=== PATIENT | female | born 1960 | race Caucasian/White ===

== ENCOUNTER 2018-08-04 15:58 | Observation (INO) | payer OTHER ==
--- NOTE | 2018-08-04 16:44 | EDPHY ---
H & P Stated Complaint: back pain Time Seen by Provider: 08/04/18 16:43 HPI/ROS: CHIEF COMPLAINT: Back pain with left leg radiculopathy HISTORY OF PRESENT ILLNESS: The patient presents the ED with complaints of acute low back pain which has been present for the past several weeks. The patient has recently developed some radiculopathy into her left thigh. She denies any acute numbness or weakness. She is not taking any NSAIDs or steroids. She is scheduled to see a specialist at [facility] next week. The patient denies prior history back surgery. She denies any bowel or bladder dysfunction. She denies saddle anesthesia. REVIEW OF SYSTEMS: A comprehensive 10 point review of systems is otherwise negative aside from elements mentioned in the history of present illness. Source: Patient Exam Limitations: No limitations - Personal History Current Tetanus/Diphtheria Vaccine: Yes Current Tetanus Diphtheria and Acellular Pertussis (TDAP): Yes Tetanus Vaccine Date: 1011 - Medical/Surgical History Hx Asthma: No Hx Chronic Respiratory Disease: No Hx Diabetes: No Hx Cardiac Disease: No Hx Renal Disease: No Hx Cirrhosis: No Hx Alcoholism: No Hx HIV/AIDS: No Hx Splenectomy or Spleen Trauma: No - Social History Smoking Status: Never smoked - Physical Exam Exam: General Appearance: Alert, mild discomfort secondary to pain Eyes: Pupils equal and round no pallor or injection ENT, Mouth: Mucous membranes moist Respiratory: There are no retractions, lungs are clear to auscultation Cardiovascular: Regular rate and rhythm Gastrointestinal: Abdomen is soft and nontender, no masses, bowel sounds normal Neurological: 5/5 strength noted all 4 extremities, normal sensory exam noted bilateral lower extremities Skin: Warm and dry, no rashes Musculoskeletal: Tenderness to palpation in the lower lumbar the musculature. Extremities: symmetrical, full range of motion Constitutional: Initial Vital Signs Temperature (C) 36.9 C 08/04/18 16:15 Heart Rate 88 08/04/18 16:15 Respiratory Rate 16 08/04/18 16:15 Blood Pressure 171/91 H 08/04/18 16:15 O2 Sat (%) 98 08/04/18 16:15 O2 Delivery Mode Room Air Allergies/Adverse Reactions: No Known Allergies Allergy (Unverified 08/04/18 16:14) Home Medications: Medication Instructions Recorded Ibuprofen 08/04/18 Turmeric 08/04/18 Medical Decision Making - Diagnostics Imaging Results: Lumbar MRI: Images reviewed by myself and discussed with radiologist Dr. Carcamo. Impression disc herniation noted at L4-5 into the left neural foramen. ED Course/Re-evaluation: The patient presents to the ED with complaints of acute low back pain with left leg radicular symptoms. The patient was noted to have no motor deficits noted on her initial exam. Patient had an IV established. She was treated with IV Solu-Medrol, narcotics and Toradol. Patient initially had improvement of her symptoms and the plan will be to discharge the patient to home on Solu-Medrol and pain medications. We attempted ambulation in the patient had recurrent severe pain. The patient was taken for an MRI of the lumbar spine which demonstrates a herniated disc at L4-L5 into the left neural foramen. The patient will be admitted to the hospitalist service, under the care of Dr. Bartolome Green. I consulted with Dr. Figueroa from Neurosurgery at 7:00 p.m.. He will evaluate the patient tomorrow to discuss options. Differential Diagnosis: Differential diagnosis considered includes lumbar disc herniation, epidural abscess, myofascial strain - Data Points Medications Given: Discontinued Medications Ketorolac Tromethamine (Toradol) 30 mg IVP EDNOW ONE Stop: 08/04/18 16:52 Last Admin: 08/04/18 16:56 Dose: 30 mg Methylprednisolone Sodium Succinate (Solu-Medrol) 125 mg IVP EDNOW ONE Stop: 08/04/18 16:51 Last Admin: 08/04/18 16:58 Dose: 125 mg Morphine Sulfate (Morphine) 5 mg IVP EDNOW ONE Stop: 08/04/18 16:52 Last Admin: 08/04/18 16:58 Dose: 5 mg Departure - Departure Disposition: [facility] Inpatient Acute Clinical Impression: Lumbar disc herniation Condition: Good Referrals: NONE *PRIMARY CARE P,. [Primary Care Provider] - As per Instructions
[2018-08-04] MEDS ORDERED: methylPREDNISolone SOD SUCC 125 MG/2 ML VIAL IVP ONE (16:50)
[2018-08-04] MEDS ORDERED: KETOROLAC 30 MG/1 ML SDV IVP ONE (16:51)
[2018-08-04] MEDS ORDERED: HYDROmorphONE/DILAUDID 1 MG/ML INJ ONE (18:15)
[2018-08-04] MEDS ORDERED: HYDROmorphONE/DILAUDID 2 MG/ML INJ IVP ONE (18:20)
[2018-08-04] MEDS ORDERED: ONDANSETRON DISINTEGRATING 4 MG TAB PO PRN (19:13)
[2018-08-04] MEDS ORDERED: ONDANSETRON 4 MG/2 ML VIAL IVP PRN (19:13)
[2018-08-04] MEDS ORDERED: ACETAMINOPHEN 325 MG TAB PO PRN (19:13)
--- NOTE | 2018-08-04 20:27 | PDGENHP ---
History and Physical - Chief Complaint L leg pain - History of Present Illness Adelina Quinonez is a 57 yo F with no significant PMHx who presents to [facility] for L leg pain. She reports this has been ongoing for past few weeks with acute worsening over few few days with associated radiation of pain down her left leg to her L foot. She denies any numbness/tingling, weakness, bowel/bladder incontinence. She denies any trauma proceeding pain. History Information - Allergies/Home Medication List Allergies/Adverse Reactions: No Known Allergies Allergy (Unverified 08/04/18 16:14) Home Medications: Ibuprofen [Motrin (*)] 200 mg PO Q6H PRN 08/04/18 [Last Taken 08/04/18 09:00] Turmeric Root Extract [Turmeric Curcumin] 500 mg PO DAILY 08/04/18 [Last Taken Unknown] I have personally reviewed and updated: family history, medical history, social history, surgical history - Past Medical History no pertinent PMH - Surgical History Reports: no pertinent surgical hx - Family History Positive for: non-pertinent - Social History Smoking Status: Never smoked Review of Systems Review of Systems: ROS: 10pt was reviewed & negative except for what was stated in HPI & below Physical Exam Physical Exam: Temp Pulse Resp BP Pulse Ox 36.9 C 89 16 150/93 H 96 08/04/18 16:15 08/04/18 20:08 08/04/18 20:08 08/04/18 20:08 08/04/18 20:08 O2 (L/minute) 2 Constitutional: uncomfortable Eyes: PERRL Ears, Nose, Mouth, Throat: moist mucous membranes Cardiovascular: regular rate and rhythym Respiratory: no respiratory distress Gastrointestinal: soft, non-tender abdomen Skin: warm Musculoskeletal: pain with ROM Neurologic: AAOx3 Psychiatric: interacting appropriately Assessment & Plan Assessment: Lumbar disc herniation (Acute) - Presenting with LLE pain radiating from lower back down to L foot - No associated weakness, numbness.bowel/bladder incontinence, saddle anesthesia - Lumbar MRI performed on admission showing soft disk protrusion causing severe L L4-5 foraminal stenosis - Pain medications PRN - Will order NAKITA to lumbar spine for the AM - Will also place Neurosurgical consult for the AM - S/p IV Solumedrol in ED FEN: IVF PRN, Regular DVT PPx: Low risk, SCDs Code: FULL Dispo: Admit to Observation
[2018-08-04] MEDS: oxyCODONE IR 5 MG TAB PO PRN (20:30)
[2018-08-04] MEDS: KETOROLAC 30 MG/1 ML SDV IVP PRN (23:43)
[2018-08-05] MEDS: oxyCODONE IR 5 MG TAB PO PRN ×2 (03:31→12:03)
[2018-08-05] MEDS: HYDROmorphONE/DILAUDID 1 MG/ML INJ IVP PRN ×2 (03:40→08:22)
[2018-08-05] MEDS ORDERED: GABAPENTIN 300 MG CAP PO SCH (09:00)
--- NOTE | 2018-08-05 09:09 | GCON ---
[f rep st] CONSULTATION NEUROSURGICAL CONSULTATION CHIEF COMPLAINT: Left leg pain history. HISTORY OF PRESENT ILLNESS: Ms. Quinonez is a 57-year-old female, who several weeks ago developed valdo n in the left buttock radiating into her left leg. Over the last couple days her pain severely worse wayne to the point where she was having a hard time walking. She was admitted to [facility] yesterday. An MRI was obtained and neurosurgical consultation was requested. She currently co mplains of pain in her left hip and buttock radiating over her left anterolateral thigh to her knee. She is not having right leg pain. She denies any weakness, ataxia, or bowel or bladder problems. S he has tried oral pain medications, Physical Therapy, and activity modification with no improvement. PAST MEDICAL HISTORY: None. MEDICATIONS: Prior to admission are Motrin and turmeric root extract. ALLERGIES: No known drug allergies. FAMILY HISTORY: Patient has no family history of spine problems. SOCIAL HISTORY: Patient is and has 2 step sons. She does drink alcohol socially, but denies smoking or drug use. REVIEW OF SYSTEMS: Negative. PHYSICAL EXAM: GENERAL: Patient is a 57-year-old female lying in bed, in moderate amount of distres s. HEAD, EYES, EARS, NOSE, AND THROAT: Negative to drainage. EXTREMITIES: [place], warm, and dry. N EUROLOGICAL: Patient is awake, alert, oriented x4. Pupils equal, round, reactive to light. Extraoc ular motions are intact. There is no evidence of facial droop. Tongue and uvula are midline. Spina l accessory muscles are intact. Her motor strength is 5/5 in her arms and legs. Her sensation is gr ossly intact to light touch in her arms and legs with the exception of a dullness to light touch in h er left anterior thigh. Deep tendon reflexes are 2+/4 in the bilateral biceps, triceps, brachioradia lis, 3+/4 in the right patellar, 1+/4 in the left patellar, 2+/4 in the bilateral Achilles. There is a negative Leroy's with no clonus. DATA REVIEWED: An MRI of the lumbar spine from [facility] on 08/04/2018, shows prese rvation of the sagittal alignment. There is mild to moderate multilevel degenerative disk disease. At L4-5, there is a large left-sided foraminal disk herniation that produces moderate to severe left- sided foraminal stenosis with severe compression of the left L4 nerve root. There is no evidence of severe central canal stenosis. IMPRESSION: This is a 57-year-old female with a severe exacerbation of left L4 radicular leg pain th at is likely related to her left paracentral far-lateral L4-5 disk herniation causing severe compress ion of the left L4 nerve root. She is neurologically stable. PLAN: All the above issues discussed in detail with the patient. This patient was seen and examined with Dr. Figueroa this morning at approximately 7:15 a.m. At this point in time, we would like her to start on gabapentin 300 mg p.o. t.i.d. She has been given oral steroids and Toradol with no signifi cant improvement of her pain. We will have Interventional Radiology do a left L4 transforaminal epid ural steroid injection. If her pain improves and she is able to ambulate, then hopefully, she can be discharged home after the injection. We will make further treatment recommendations if she fails to improve after the epidural steroid injection. Please call with any neurological changes. /[id number]/MODL
[2018-08-05] MEDS ORDERED: LIDOCAINE 1% 300 MG/30 ML SDV ONE (09:18)
[2018-08-05] MEDS ORDERED: IOPAMIDOL (ISOVUE-M 300) 15 ML VIAL ONE (09:18)
[2018-08-05] MEDS ORDERED: TRIAMCINOLONE ACETONIDE 200 MG/5 ML MDV IM ONE (09:18)
[2018-08-05] MEDS ORDERED: MIDAZOLAM 2 MG/2 ML VIAL IVP PRN (09:48)
[2018-08-05] MEDS ORDERED: fentaNYL 100 MCG/2 ML INJ IVP PRN (09:48)
[2018-08-05] MEDS ORDERED: FLUMAZENIL 0.5 MG/5 ML MDV IVP PRN (09:48)
[2018-08-05] MEDS ORDERED: MEPERIDINE 25 MG/ML SYR IVP PRN (09:48)
[2018-08-05] MEDS ORDERED: NALOXONE HCL 0.4 MG/ML INJ IVP PRN (09:48)
[2018-08-05] MEDS ORDERED: NS 1,000 ML IV SCH (10:00)
[2018-08-05] MEDS: KETOROLAC 30 MG/1 ML SDV IVP PRN ×2 (10:59→17:03)
[2018-08-05] MEDS ORDERED: HYDROmorphONE/DILAUDID 2 MG/ML INJ ONE (11:02)
--- NOTE | 2018-08-05 11:09 | ASMTCMCOM ---
CM Note CM Note Notes: Pt resides with spouse, to have steroid injection. PT/OT pending. D/c plan of care is TBD. Date Signed: 08/05/2018 11:09 AM Electronically Signed By:KASI Lopez
--- NOTE | 2018-08-05 11:24 | PDPROPOC ---
Sedation Plan of Care ASA Classification: ASA 2 Mallampati Score: Class 2 Mallampati Reference Image:
--- NOTE | 2018-08-05 11:25 | PDRADPN ---
Radiology Procedure Note Date of Procedure: 08/05/18 Radiologist: Nae Butler Anesthesia: IV Sedation Pre-op Diagnosis: back pain Post-op Diagnosis: same Procedure: L4-L5 NAKITA, selective nerve root block L L4 Inf/Abcess present in the surg proc area at time of surgery?: No
[2018-08-05] MEDS ORDERED: HYDROmorphONE/DILAUDID 1 MG/ML INJ IVP ONE (11:45)
[2018-08-05] MEDS ORDERED: HYDROmorphONE/DILAUDID 2 MG/ML INJ IVP ONE (12:15)
[2018-08-05] MEDS ORDERED: oxyCODONE IR 5 MG TAB PO PRN (15:41)
--- NOTE | 2018-08-05 15:47 | HOSPPROG ---
Hospitalist Progress Note Assessment/Plan: 57 yo F w L4 L5 disc herniation w radicular sx disc herniation: s/p injection w improvement of pain but still unsteady on feet will benefit from add'l day PT loopiness: I have reduced narcotics, decreased neurontin hypoxia: add IS proph: ambulatory Subjective: pain improved, not resolved. feels loopy Objective: Vital Signs Temp Pulse Resp BP Pulse Ox 37.1 C 71 16 97/57 L 96 08/05/18 13:10 08/05/18 14:08 08/05/18 14:08 08/05/18 14:08 08/05/18 14:08 08/04/18 08/05/18 08/06/18 05:59 05:59 05:59 Output Total 925 300 Balance -925 -300 - Physical Exam Constitutional: no apparent distress, appears nourished Eyes: PERRL, anicteric sclera Ears, Nose, Mouth, Throat: moist mucous membranes, hearing normal Cardiovascular: regular rate and rhythym, no murmur, rub, or gallop Respiratory: no respiratory distress, no rales or rhonchi Gastrointestinal: normoactive bowel sounds, soft, non-tender abdomen Genitourinary: no bladder fullness, No rhodes in urethra Skin: warm, normal color Musculoskeletal: full muscle strength, no muscle tenderness Neurologic: AAOx3, sensation intact bilaterally Psychiatric: interacting appropriately Lymph, Heme, Immunologic: no cervical LAD ICD10 Worksheet Patient Problems: Problems Problem Status Onset Lumbar disc herniation Acute
[2018-08-05] MEDS: GABAPENTIN 300 MG CAP PO SCH (20:33)
[2018-08-05] MEDS ORDERED: BISACODYL 10 MG SUPP PR PRN (22:51)
[2018-08-05] MEDS ORDERED: LACTULOSE 20 GM/30 ML UDCUP PO PRN (22:51)
[2018-08-05] MEDS ORDERED: MAGNESIUM HYDROXIDE 30 ML UDCUP PO PRN (22:51)
[2018-08-05] MEDS ORDERED: POLYETHYLENE GLYCOL 3350 17 GM PKT PO PRN (22:51)
[2018-08-06] MEDS: KETOROLAC 30 MG/1 ML SDV IVP PRN (05:18)
[2018-08-06 07:39] VITALS: BP 121/76
--- NOTE | 2018-08-06 08:06 | NEUSURGPN ---
Assessment/Plan: Assessment: 57 yr old female presented with low back pain and left leg radiculopathy without weakness. Left L4-5 disc herniation on MRI Plan: -Patient is post left L4-5 injection yesterday with IR, doing much better today per patient. Pain is tolerable but not completely gone. -Recommend continuing with conservative management including gabapentin and repeat injections later if needed. Patient has appointment with [facility] in 2 weeks. -Will have patient follow up with us in 3-4 weeks -Neurosurgery will sign off, please call with any questions Discussed patient with Dr Figueroa Subjective: Left leg pain improved following injection Objective: AxOx4 MAEx4 5/5 BLE Sensation intact to light touch BLE negative straight leg raise BLE Neuro Check Frequency: per routine Urinary Catheter in Place: No - Physician Discussed Patient with Dr.: Figueroa Neurosurgery Physical Exam - Vitals, I&O, Labs I and O 08/05/18 08/06/18 08/07/18 05:59 05:59 05:59 Intake Total 200 Output Total 925 1600 Balance -925 -1400 Weight 61.235 kg Intake: Oral (ml) 200 Output: Urine (ml) 925 1600 Bedpan 925 300 Toilet 1300 Other: Intake Quantity Yes Sufficient Number of Voids Bedpan 1 1 Toilet 1 Vital Signs Temp Pulse Resp BP Pulse Ox 36.4 C 72 12 121/76 H 95 08/06/18 07:38 08/06/18 07:38 08/06/18 07:38 08/06/18 07:38 08/06/18 07:38 ICD10 Worksheet Patient Problems: Problems Problem Status Onset Lumbar disc herniation Acute
--- NOTE | 2018-08-06 08:32 | HOSPPROG ---
Hospitalist Progress Note Assessment/Plan: 57 yo F w L4 L5 disc herniation w radicular sx disc herniation: s/p injection w improvement of pain but still unsteady on feet will benefit from add'l day PT loopiness: I have reduced narcotics, decreased neurontin resolved hypoxia: add IS proph: ambulatory home today see dc summary Subjective: feels well. ready for dc. off 02 Objective: Vital Signs Temp Pulse Resp BP Pulse Ox 36.4 C 72 12 121/76 H 95 08/06/18 07:38 08/06/18 07:38 08/06/18 07:38 08/06/18 07:38 08/06/18 07:38 08/05/18 08/06/18 08/07/18 05:59 05:59 05:59 Intake Total 200 Output Total 925 1600 Balance -925 -1400 - Physical Exam Constitutional: no apparent distress, appears nourished Eyes: PERRL, anicteric sclera Ears, Nose, Mouth, Throat: moist mucous membranes, hearing normal Cardiovascular: regular rate and rhythym, no murmur, rub, or gallop Respiratory: no respiratory distress, no rales or rhonchi Gastrointestinal: normoactive bowel sounds, soft, non-tender abdomen Genitourinary: no bladder fullness, No rhodes in urethra Skin: warm, normal color Musculoskeletal: full muscle strength ICD10 Worksheet Patient Problems: Problems Problem Status Onset Lumbar disc herniation Acute
--- NOTE | 2018-08-06 08:47 | GDS ---
[f rep st] DISCHARGE SUMMARY DISCHARGE DIAGNOSES: 1. Acute low back pain. 2. Large soft disk bulge or protrusion in the left lateral recess at L4-L5. The patient presented with back pain and left leg pain, inability to walk. Seen by Neurosurgery. Annette marquez received an epidural steroid injection with near immediate relief on steroid injection. She was mo derately over medicated and observed overnight. She is discharged home on Neurontin 300 t.i.d. She has followup with [facility], as well as Neurosurgery at her discretion. She has no significant othe r medical problems. She is discharged home with a prescription for Neurontin. /[id number]/MODL
[2018-08-06] MEDS ORDERED: TURMERIC ROOT EXTRACT 500 MG PO SCH (09:00)
[2018-08-06] MEDS ORDERED: SENNOSIDES/DOCUSATE SODIUM TAB PO SCH (09:00)
[2018-08-06] MEDS: GABAPENTIN 300 MG CAP PO SCH (09:07)
--- NOTE | 2018-08-06 10:40 | ASMTCMCOM ---
CM Note CM Note Notes: Met with Pt who reports she is feeling so much better after her Steroid Injection yesterday. Pt has no needs at this time and will discharge home with her . CM available if needs arise. PLAN: Home independently with . Date Signed: 08/06/2018 10:38 AM Electronically Signed By:Adelina Burgos
--- NOTE | 2018-08-06 10:41 | ASMTLACE ---
MYLES Length of stay for Answers: 1 day current admission # of Emergency department Answers: 1-2 visits in the last 6 months Score: 2 Date Signed: 08/06/2018 10:41 AM Electronically Signed By:Adelina Burgos
== END 2018-08-06 12:45 | disposition home or self-care (01) ==
LOC: F3N 20:11
PROVIDERS: ADMIT Internal Medicine; ATTEND Internal Medicine
DX: M54.16 Radiculopathy, lumbar region (principal); M51.26 Other intervertebral disc displacement, lumbar region
CPT/HCPCS: 62323; 64483; 72148; 96374; 96375; 97116; 97161; 97165; 99285; G0378; J1170; J1885; J2270; J2930; J3301; Q9967